=== PATIENT | female | born 1975 | race Two or more races ===

== ENCOUNTER → 2022-09-06 10:14 | Outpatient (CLI) | payer OTHER | END | disposition home or self-care (01) | LOC: LAB 10:14 | PROVIDERS: ATTEND Orthopaedic Surgery | DX: D72.819 Decreased white blood cell count, unspecified (principal); D64.9 Anemia, unspecified ==

== ENCOUNTER 2022-09-11 07:35 | Outpatient (CLI) | payer OTHER | END 2022-09-11 22:30 | disposition home or self-care (01) | LOC: LAB 07:35 | PROVIDERS: ATTEND Orthopaedic Surgery | DX: D72.819 Decreased white blood cell count, unspecified (principal) ==

== ENCOUNTER 2022-09-18 07:58 | Outpatient (CLI) | payer OTHER | END 2022-09-18 15:54 | disposition home or self-care (01) | LOC: LAB 07:58 | PROVIDERS: ATTEND Orthopaedic Surgery | DX: D64.9 Anemia, unspecified (principal); A49.02 Methicillin resistant Staphylococcus aureus infection, unspecified site ==

== ENCOUNTER 2022-09-25 14:27 | Outpatient (CLI) | payer OTHER | END 2022-09-25 14:30 | disposition home or self-care (01) | LOC: LAB 14:27 | PROVIDERS: ATTEND Orthopaedic Surgery | DX: D64.9 Anemia, unspecified (principal); E88.9 Metabolic disorder, unspecified; D68.8 Other specified coagulation defects; N39.0 Urinary tract infection, site not specified; A49.02 Methicillin resistant Staphylococcus aureus infection, unspecified site; I49.9 Cardiac arrhythmia, unspecified; I10 Essential (primary) hypertension ==